=== PATIENT | female | born 1990 | race African-American/Black ===

== ENCOUNTER 2017-11-09 22:20 | Inpatient (IN) | payer OTHER ==
[2017-11-09 22:48] LABS: Pregnancy Test - Urine (BHCG) POSITIVE (Negative); Pregu Control Background? CLEAR/WHITE (CLR/WHITE); Pregu Control Bar Appear? YES (CONTROL BAR)
[2017-11-09 22:50] LABS: Bilirubin Negative (Negative); Blood, Urine Negative (Negative); Clarity CLOUDY (Clear); Glucose, Urine (Dipstick) Negative (Negative); Leukocyte Large (Negative); Nitrite Positive (Negative); Protein, Urine (Dipstick) Trace mg/dL (Neg-Trace); Specific Gravity, Urine 1.012 (1.002-1.036)
[2017-11-09 22:51] LABS: Specific Gravity 1.012 (1.002-1.036)
[2017-11-09 22:52] LABS: Bacteria/HPF 4+ HPF (None Seen); Hyaline Casts/LPF 0-3 HYALINE CAST LPF (0-3 Hyaline); Pathc Cast-AUWi Flag 0.13 (0-2.49); Yeast-AUWi Flag 21.9 (0-25.0)
[2017-11-09] MEDS ORDERED: Acetaminophen 500 MG TAB ONE (23:23)
[2017-11-09 23:31] LABS: #Basophils 0.1 thou/uL (0.0-0.2); #Eosinphils 0.1 thou/uL (0.0-0.7); #Lymphocytes 1.3 thou/uL (1.20-3.40); #Monocytes 0.6 thou/uL (0.11-0.59); #Neutrophils 8.1 thou/uL (1.40-6.50); %Basophils 0.9 % (0.0-1.0); %Lymphocytes 12.4 % (21.0-51.0); %Monocytes 5.7 % (0.0-10.0); %Neutrophils 79.9 % (42.0-75.0); Hemoglobin 10.7 g/dL (12.0-16.0); Mean Corpuscular HGB CONC 34.7 g/dL (32.0-36.0); Mean Corpuscular Hemoglobin 30.3 pg (27.0-31.0); Mean Corpuscular Volume 87.2 fl (81.0-99.0); Mean Platelet Volume 9.7 fL (7.4-10.4); Platelet Count 156 thou/uL (130-400); RBC Distribution Width 11.8 % (11.5-14.5); Red Blood Cell (RBC) Count 3.52 mill/uL (4.20-5.40); White Blood Cell (WBC) Count 10.1 thou/uL (4.8-10.8)
[2017-11-09 23:56] LABS: ALT (SGPT) 7 U/L (8-55); AST (SGOT) 10 U/L (5-34); Albumin 3.7 g/dL (3.5-5.0); Alkaline Phosphatase 84 U/L (40-150); Anion Gap 14 mmol/L (10-20); BUN (Urea Nitrogen) 4 mg/dL (7.0-18.7); Bilirubin, Total 0.4 mg/dL (0.2-1.2); Calc. Creatinine Clearance 0 mL/min (70-130); Calcium 9.1 mg/dL (7.8-10.44); Carbon Dioxide 20 mmol/L (22-29); Chloride 102 mmol/L (98-107); Estimated GFR-MDRD Greater than 90; Globulin 3.3 g/dL (2.4-3.5); Glucose 102 mg/dL (70-105); Potassium 3.3 mmol/L (3.5-5.1); Sodium 133 mmol/L (136-145)
[2017-11-10] MEDS ORDERED: Acetaminophen 500 MG TAB PO PRN (00:37)
[2017-11-10 00:42] VITALS: BMI 28.0
[2017-11-10] MEDS ORDERED: cefTRIAXone\\ROCEPHIN 1 GM in Sodium Chloride 0.9% 100 ML IVPB SCH (00:45)
[2017-11-10] MEDS ORDERED: Potassium Chloride 20 MEQ TAB PO SCH ×2 (00:45→08:00)
[2017-11-10] MEDS: Sodium Chloride 0.9% 1,000 ML IV SCH ×2 (01:28→05:41)
[2017-11-10 02:16] LABS: Amphetamine Not Detected (NotDetected); Barbiturates Screen Not Detected (NotDetected); Benzodiazepine Screen Not Detected (NotDetected); Cocaine Metabolite Screen Not Detected (NotDetected); Medtox Control Line Valid? VALID (VALID); Medtox Reader # READER 1; Methadone Not Detected (NotDetected); Methamphetamine Not Detected (NotDetected); Opiate Screen Not Detected (NotDetected); Oxycodone Screen Not Detected (NotDetected); Phencyclidine (PCP) Not Detected (NotDetected); THC/Cannabinoid Screen Not Detected (NotDetected); Tricyclic Screen Not Detected (NotDetected)
[2017-11-10 05:50] LABS: #Eosinphils 0.1 thou/uL (0.0-0.7); #Lymphocytes 1.8 thou/uL (1.20-3.40); #Monocytes 0.4 thou/uL (0.11-0.59); #Neutrophils 4.9 thou/uL (1.40-6.50); %Basophils 0.4 % (0.0-1.0); %Eosinophils 1.9 % (0.0-10.0); %Lymphocytes 24.9 % (21.0-51.0); %Monocytes 6.1 % (0.0-10.0); %Neutrophils 66.8 % (42.0-75.0); Hemoglobin 8.8 g/dL (12.0-16.0); Mean Corpuscular HGB CONC 33.9 g/dL (32.0-36.0); Mean Corpuscular Hemoglobin 29.4 pg (27.0-31.0); Mean Corpuscular Volume 86.9 fl (81.0-99.0); Mean Platelet Volume 9.6 fL (7.4-10.4); Platelet Count 132 thou/uL (130-400); RBC Distribution Width 11.7 % (11.5-14.5); White Blood Cell (WBC) Count 7.3 thou/uL (4.8-10.8)
[2017-11-10 06:00] LABS: Anion Gap 8 mmol/L (10-20); BUN (Urea Nitrogen) Less than 4 mg/dL (7.0-18.7); Calc. Creatinine Clearance 167 mL/min (70-130); Carbon Dioxide 22 mmol/L (22-29); Chloride 108 mmol/L (98-107); Estimated GFR-MDRD Greater than 90; Glucose 91 mg/dL (70-105); Potassium 3.4 mmol/L (3.5-5.1); Sodium 135 mmol/L (136-145)
--- NOTE | 2017-11-10 07:29 | HP-2 ---
DATE OF ADMISSION: 11/10/2017 CODE STATUS: FULL. PRIMARY CARE PHYSICIAN: Dr. Jason Warren ATTENDING: Dr. Antonia Bailey RESIDENT: Dr. Trice Sanchez HISTORIAN: Patient. CHIEF COMPLAINT: Right flank pain. HISTORY OF PRESENT ILLNESS: This is a 27-year-old female G4, P2-1-0-3 at 17 and 3 weeks by 16 and 4-week ultrasound at [facility] presents with right-sided flank pain and foul smelling urine. She states that she has had these symptoms for 2 weeks. She states that she has some urinary hesitancy and increased frequency. She said she had a history of nausea, vomiting early in the , but has no nausea or vomiting associated with these symptoms. She also reports some subjective fevers and chills at home over the past 2 weeks. She denies dysuria. In the ER, she received 1 gram Rocephin, 1 liter of normal saline and Tylenol. PAST MEDICAL HISTORY: 1. Pyelo. 2. Chronic hypertension. OB HISTORY: She has a history of a twin gestation delivered at 36 weeks via C- section and prior to that 2 vaginal deliveries, both males at term. She had a history of preeclampsia in her with her twins as well as in her second . She states she has chronic hypertension and is currently managing it with diet. PAST SURGICAL HISTORY: x1. ALLERGIES: No known drug allergies. MEDICATIONS: vitamins. FAMILY HISTORY: None. SOCIAL HISTORY: She does smoke 5 cigarettes a day. Denies alcohol use. Has a history of marijuana use. REVIEW OF SYSTEMS: GENERAL: Endorses fevers and chills. GI: Endorses a history of nausea and vomiting, not current. RESPIRATORY: Denies cough, congestion. CARDIOVASCULAR: Denies chest pain, palpitations. : LMP 07/14/2017. Endorses hesitancy and foul smelling urine and increased frequency. SKIN: Denies rashes or lesions. MUSCULOSKELETAL: Neck pain and tenderness. NEURO: Denies weakness, numbness. PSYCHIATRIC: Denies anxiety, depression. PHYSICAL EXAMINATION: VITAL SIGNS: Blood pressure 133/85, pulse 101, respiratory rate 16, T-max 99.5 , pulse ox 99% on room air. Current weight 78.9 kilograms. GENERAL: Alert and oriented x4. EYES: PERRLA, EOMI. ENT: Nasal mucosa and oropharynx within normal limits. NECK: Supple. CARDIOVASCULAR: Regular rate and rhythm. No murmur, rub, or gallop. RESPIRATORY: Normal effort, no retractions, clear to auscultation bilaterally. ABDOMEN: Soft, right lower quadrant and suprapubic tenderness to palpation. Positive CVA tenderness of the right gravid abdomen. MUSCULOSKELETAL: Structure within normal limits. NEUROLOGIC: No focal deficits. LABORATORY DATA: CBC 10.1, 10.7, 30.7, 156. CMP: 133, 3.3, 102, 24, [id number]. AST, ALT, alkaline phosphatase, 10, 7, 84. MCV 87. GFR greater than 90. UA; specific gravity 1.012, negative blood, trace protein, large leukocyte esterase, positive for nitrites, 40 ketones, 4-6 red blood cells, greater than 50 white blood cells, 4+ bacteria, 4-6 squamous epithelial cells, negative. Prior labs from clinic show negative gonorrhea, negative chlamydia. ASSESSMENT AND PLAN: This is a 27-year-old female G4, P2-1-0-3 at 17 and 3 x 16 and 4-week ultrasound, presents with right flank pain, admitted for pyelonephritis. 1. Pyelonephritis: The patient was given 1 gram of Rocephin in the ER. This was continued. She was placed on IV fluids at a rate of 150 mL per hour. We will recheck a CBC and BMP. We will provide Tylenol p.r.n. for pain and fever. 2. Chronic hypertension that is diet controlled. We will continue to monitor. Recommend a 24-hour protein in the outpatient setting once the patient is not sick. 3. Hypokalemia. We will replace patient's potassium. 4. Anemia of . We will provide p.o. iron since her hemoglobin is less than 11. 5. History of drug use. We will order a urine drug screen. 6. History of preeclampsia, would recommend 24-hour urine as stated above. 7. [place] intrauterine at 17 and 4 weeks by 16 and 4-week ultrasound. Recommend routine care. DISPOSITION/LENGTH OF HOSPITAL STAY: 2-3 days. Symptomatic medications will be provided. History and physical exam as well as management discussed with Dr. Bailey. KERRY
--- NOTE | 2017-11-10 08:31 | PDOC.FM ---
- Subjective Subjective: Pt doing a little better this morning. Denies any fever or chills. Reports having R. sided back pain. Says it is a little lower this morning. Denies any pain with urination. Reported foul smelling urine. Says pain is not being well controlled with tylenol at this time. Reports pain as achey - Objective MAR Reviewed: Yes Vital Signs & Weight: Vital Signs (12 hours) Temp Pulse Resp BP 11/10/17 04:00 98.9 F 79 16 116/64 11/10/17 01:00 99.6 F 79 16 Weight Weight 78.925 kg I&O: 11/09/17 11/10/17 11/11/17 06:59 06:59 06:59 Intake Total 1350 Output Total 1400 Balance -50 Result Diagrams: 11/10/17 05:09 11/10/17 05:09 Radiology Reviewed by me: No (No images to review) <Jason Warren - Last Filed: 11/10/17 09:11> - Objective Vital Signs & Weight: Vital Signs (12 hours) Temp Pulse Resp BP BP 11/10/17 12:00 98.4 F 89 20 121/60 11/10/17 08:58 98.1 F 86 18 11/10/17 08:00 98.1 F 86 18 123/80 11/10/17 04:00 98.9 F 79 16 116/64 Weight Weight 78.925 kg I&O: 11/09/17 11/10/17 11/11/17 06:59 06:59 06:59 Intake Total 1350 Output Total 1400 Balance -50 Result Diagrams: 11/10/17 05:09 11/10/17 05:09 <Jennifer Barriga - Last Filed: 11/10/17 15:44> Phys Exam - Physical Examination Constitutional: NAD HEENT: PERRLA, moist MMs Neck: no nodes, no JVD, full ROM Respiratory: no wheezing, no rales, no rhonchi, clear to auscultation bilateral Cardiovascular: RRR, no significant murmur Gastrointestinal: soft, non-tender, no distention, positive bowel sounds Musculoskeletal: no edema, pulses present Has pain on palpation of R lower side. CVA tenderness noted Neurological: non-focal, normal sensation, moves all 4 limbs Lymphatic: no nodes Psychiatric: normal affect, A&O x 3 Skin: no rash, normal turgor <Jason Warren - Last Filed: 11/10/17 09:11> Dx/Plan (1) Pyelonephritis affecting in second trimester Code(s): O23.02 - INFECTIONS OF KIDNEY IN , SECOND TRIMESTER; N12 - TUBULO-INTERSTITIAL NEPHRITIS, NOT SPCF ACUTE OR CHRONIC Status: Acute (2) Status: Acute QualifierTitle: Weeks of gestation: 16 weeks Qualified Code(s): Z3A.16 - 16 weeks gestation of - Plan Plan: 1)Pyelonephritis -UA nitrite +, 4+ bacteria, and Large LE. Pt reports having hx of foul smelling urine for last few weeks. -Outside U/A was negative. -Tx with rocephin at this time. -Tylenol not adequately controlling pain at this time. May consider adjusting pain medication. 2)Hypokalemia -K 3.4 this morning. will replace. Will continue to check daily BMP and tx as needed 3) of 2nd Trimester -27 yo @17.4 weeks and 16.4 weeks by outside U/s -Is taking -Will continue to monitor 4)Chronic Hypertension of -Has hx of severe preeclampsia in previous -will start on aspirin at this time. - Continue to manage and f/u with routine care. Will want to get Protein/Cr ratio outside. -Recommend 24 hour urine protein -Do not want to tx unless severely elevated 5)Anemia of -Hgb 8.8 this morning. Some may be dilutional due to fluids. -Being tx with iron BID. <Jason Warren - Last Filed: 11/10/17 09:11> (1) delivery due to maternal disorder Code(s): [id number] - Status: Acute Plan: Follow up with PCP to discuss MOD options. Follow up sono for location of placenta. (2) Hypokalemia Code(s): E87.6 - HYPOKALEMIA Status: Acute Plan: Trend. Add mag to AM labs. Replace if less than 2.0. (3) Anemia affecting in second trimester Code(s): O99.012 - ANEMIA COMPLICATING , SECOND TRIMESTER Status: Chronic Plan: Continue oral iron. If remains low, would consider iron infusion prior to d/c. (4) Chronic hypertension complicating or reason for care during Code(s): O10.919 - UNSP PRE-EXISTING HTN COMP , UNSP TRIMESTER Status : Chronic Qualifiers: Trimester: second trimester Qualified Code(s): O10.912 - Unspecified pre- existing hypertension complicating , second trimester Plan: Once infection treated with negative FARA, will need 24 hour urine protein collection as well as consideration for baseline uric acid. Start ASA. Plan for daily BP monitoring. Will need to plan for referral to [facility] for anatomy. Will need antepartum testing scheduled at later date. (5) History of herpes genitalis Code(s): Z86.19 - PERSONAL HISTORY OF OTHER INFECTIOUS AND PARASITIC DISEASES Status: Chronic (6) Thrombocytopenia affecting Code(s): O99.119 - OT DIS OF BLD/BLD-FORM ORG/IMMUN MECHNSM COMP PREG,UNSP TRI ; D69.6 - THROMBOCYTOPENIA, UNSPECIFIED Status: Acute Plan: Trend. Add peripheral smear to AM CBC. Rule out causes. Possible ITP vs gestational vs acute infectious cause. <Jennifer Barriga - Last Filed: 11/10/17 15:44> Attending Addendum - Attending Addendum I personally evaluated the patient and discussed the management with Dr. Warren and Dr. Diaz I agree with the History, Examination, Assessment and Plan documented above with any addition or exceptions noted below. 27 yo (previous di/di twin delivery) at 17.3 wks by 16.4 wk sono admitted for right-sided pyelonephritis. HD#1 MATTIE: 04/17/18 Afebrile. VSS. Doing well. Tolerating IV antibx without complications. Mild RCVA on exam. Lungs CTA bilaterally. No SOB. Pyelonephritis: Continue IV antibx for at least 48 hours. Awaiting culture results to de-escalate. Trend CBC. Will need FARA after 2 wks. Will need ppx. Past hx of pyelo with last . Would consider referral to urology. cHTN: Monitor. ASA started. Will need baseline 24 hour urine protein once FARA negative. sIUP: Routine PNC. Anemia: Check etiology. Past hx of anemia with last . No known hemoglobinopathy Thrombocytopenia: Smear in AM. Consider ITP. Will need Hep c ruled out. hx of LTCS: Follow up with PCP to discuss MOD. Continue inpt care. Lele <Jennifer Barriga - Last Filed: 11/10/17 15:44>
[2017-11-10] MEDS: Prenatal Vitamin 1 TAB PO SCH (09:22)
[2017-11-10] MEDS: Ferrous Sulfate 325 MG TAB PO SCH ×2 (09:23→18:22)
[2017-11-10 13:56] LABS: Hemoglobin A1c 4.6 % (4.0-6.0)
[2017-11-10] MEDS: Acetaminophen 325 MG TAB PO SCH ×2 (15:26→20:31)
[2017-11-10] MEDS: cefTRIAXone\\ROCEPHIN 1 GM, Syringe 0.4 ML in Sterile Water 9.6 ML SLOW IVP SCH (20:31)
[2017-11-11] MEDS: Acetaminophen 325 MG TAB PO SCH ×4 (01:54→20:12)
[2017-11-11 05:53] LABS: Band 3 % (5-11); Eosinophils 4 % (0-10); Lymphocytes 24 % (21-51); MDiff Complete? YES; Mean Corpuscular HGB CONC 33.5 g/dL (32.0-36.0); Mean Corpuscular Volume 86.7 fl (81.0-99.0); Mean Platelet Volume 9.8 fL (7.4-10.4); Monocytes 4 % (0-10); Neutrophil 65 % (42-75); PLT Morphology Comment Appears Adequate; Platelet Count 141 thou/uL (130-400); RBC Distribution Width 11.8 % (11.5-14.5); Red Blood Cell (RBC) Count 3.11 mill/uL (4.20-5.40); White Blood Cell (WBC) Count 7.3 thou/uL (4.8-10.8)
[2017-11-11 06:10] LABS: Anion Gap 13 mmol/L (10-20); BUN (Urea Nitrogen) Less than 4 mg/dL (7.0-18.7); Calc. Creatinine Clearance 154 mL/min (70-130); Calcium 8.7 mg/dL (7.8-10.44); Carbon Dioxide 18 mmol/L (22-29); Chloride 106 mmol/L (98-107); Estimated GFR-MDRD Greater than 90; Glucose 78 mg/dL (70-105); Potassium 4.5 mmol/L (3.5-5.1); Sodium 132 mmol/L (136-145)
--- NOTE | 2017-11-11 08:18 | PDOC.FM ---
- Subjective Subjective: Pt reports doing much better this morning. Pt says that pain has gotten much better. Is being well controlled with current regimen. Pt states she feels ready to go home. Denies any pain with urination. Denies any fever or chills. Denies any acute events overnight. - Objective MAR Reviewed: Yes Vital Signs & Weight: Vital Signs (12 hours) Temp Pulse Resp BP 11/11/17 07:48 98.8 F 79 18 130/65 11/11/17 04:00 98.9 F 86 16 123/60 11/11/17 01:59 100.1 F H 94 16 138/71 Weight Weight 78.925 kg I&O: 11/10/17 11/11/17 11/12/17 06:59 06:59 06:59 Intake Total 1350 2430 Output Total 1400 2200 Balance -50 230 Result Diagrams: 11/11/17 05:03 11/11/17 05:03 <Jason Warren - Last Filed: 11/11/17 08:30> - Objective Vital Signs & Weight: Vital Signs (12 hours) Temp Pulse Resp BP 11/11/17 12:00 98.0 F 84 20 120/61 11/11/17 08:00 98.8 F 79 18 11/11/17 07:48 98.8 F 79 18 130/65 Weight Weight 78.925 kg I&O: 11/10/17 11/11/17 11/12/17 06:59 06:59 06:59 Intake Total 1350 2430 Output Total 1400 2200 Balance -50 230 Result Diagrams: 11/11/17 05:03 11/11/17 05:03 <Jennifer Barriga - Last Filed: 11/11/17 16:25> Phys Exam - Physical Examination Constitutional: NAD HEENT: PERRLA, moist MMs, oral pharynx no lesions Neck: no nodes, supple, full ROM Respiratory: no wheezing, no rales, no rhonchi, clear to auscultation bilateral Cardiovascular: RRR, no significant murmur, no rub Gastrointestinal: soft, non-tender, no distention, positive bowel sounds No CVA tenderness noted today Musculoskeletal: no edema, pulses present Neurological: non-focal Lymphatic: no nodes Psychiatric: normal affect, A&O x 3 Skin: no rash, normal turgor, cap refill <2 seconds <Jason Warren - Last Filed: 11/11/17 08:30> Dx/Plan (1) Pyelonephritis affecting in second trimester Code(s): O23.02 - INFECTIONS OF KIDNEY IN , SECOND TRIMESTER; N12 - TUBULO-INTERSTITIAL NEPHRITIS, NOT SPCF ACUTE OR CHRONIC Status: Acute (2) Status: Acute QualifierTitle: Weeks of gestation: 16 weeks Qualified Code(s): Z3A.16 - 16 weeks gestation of (3) Thrombocytopenia affecting Code(s): O99.119 - OTH DIS OF BLD/BLD-FORM ORG/IMMUN MECHNSM COMP PREG,UNSP TRI ; D69.6 - THROMBOCYTOPENIA, UNSPECIFIED Status: Acute (4) Hypokalemia Code(s): E87.6 - HYPOKALEMIA Status: Resolved (5) Anemia affecting in second trimester Code(s): O99.012 - ANEMIA COMPLICATING , SECOND TRIMESTER Status: Chronic (6) Chronic hypertension complicating or reason for care during Code(s): O10.919 - UNSP PRE-EXISTING HTN COMP , UNSP TRIMESTER Status : Chronic QualifierTitle: Trimester: second trimester Qualified Code(s): O10.912 - Unspecified pre-existing hypertension complicating , second trimester (7) History of herpes genitalis Code(s): Z86.19 - PERSONAL HISTORY OF OTHER INFECTIOUS AND PARASITIC DISEASES Status: Chronic (8) delivery due to maternal disorder Code(s): [id number] - Status: Acute - Plan Plan: 1)Pyelonephritis -UA nitrite +, 4+ bacteria, and Large LE. Pt reports having hx of foul smelling urine for last few weeks. Pt sx's much improved from yesterday. Feels ready to go home. Will await urine cx for abx tx outpatient. Will continue to monitor. -Outside U/A was negative. -Tx with rocephin at this time. -Urine Cx pending- will await results for further tx course -Continue ana Tylenol. Controlling pain. 2)Hypokalemia-resolved -K 4.5 this morning. Resolved. Will continue to check daily BMP and tx as needed 3) of 2nd Trimester -27 yo @17.5 weeks and 16.5 weeks by outside U/s -Is taking -Will continue to monitor 4)Chronic Hypertension of -Has hx of severe preeclampsia in previous -will start on aspirin at this time. -BP stable and in normal range on last few checks. - Continue to manage and f/u with routine care. Will want to get Protein/Cr ratio outside. -Recommend 24 hour urine protein. Consider baseline uric acid. Will need to plan for referral to [facility] for anatomy. Will need antepartum testing scheduled at later date. -Do not want to tx unless severely elevated 5)Anemia of -Hgb 9.0 this morning. Some may be dilutional due to fluids. -Iron low at 42. Ferritin normal. -Being tx with iron BID. -Continue to follow outpatient 6) Thrombocytopenia -Plt count low. Improving this morning. Could be due to infection. ITP vs gestational. -Peripheral smear pending to rule out any pathology 7) hx of herpes -No sign of acute infection at this time. Will need to possibly tx with acyclovir closer to delivery <Jason Warren - Last Filed: 11/11/17 08:30> (1) delivery due to maternal disorder Code(s): [id number] - Status: Acute (2) Anemia affecting in second trimester Code(s): O99.012 - ANEMIA COMPLICATING , SECOND TRIMESTER Status: Chronic (3) Chronic hypertension complicating or reason for care during Code(s): O10.919 - UNSP PRE-EXISTING HTN COMP , UNSP TRIMESTER Status : Chronic Qualifiers: Trimester: second trimester Qualified Code(s): O10.912 - Unspecified pre- existing hypertension complicating , second trimester (4) History of herpes genitalis Code(s): Z86.19 - PERSONAL HISTORY OF OTHER INFECTIOUS AND PARASITIC DISEASES Status: Chronic (5) Thrombocytopenia affecting Code(s): O99.119 - [facility] DIS OF BLD/BLD-FORM ORG/IMMUN MECHNSM COMP PREG,UNSP TRI ; D69.6 - THROMBOCYTOPENIA, UNSPECIFIED Status: Acute <Jennifer Barriga - Last Filed: 11/11/17 16:25> Attending Addendum - Attending Addendum I personally evaluated the patient and discussed the management with Dr. Warren and Dr. Diaz I agree with the History, Examination, Assessment and Plan documented above with any addition or exceptions noted below. 27 yo (previous di/di twin delivery) at 17.4 wks by 16.4 wk sono admitted for right-sided pyelonephritis. HD#2 MATTIE: 04/17/18 Borderline temp overnight. VSS. Doing well. Tolerating IV antibx without complications. Pain controlled today. Pyelonephritis: Continue IV antibx for at least 48 hours. Noted to have E. coli. Awaiting sensitivities. Will need FARA after 2 wks. Will need ppx throughout and 6 wks pp. Past hx of pyelo with last . Would consider referral to urology as well. cHTN: BP WNL. Monitor. Continue ASA. Will need baseline 24 hour urine protein once FARA negative. Will need TSH, not done with IOB labs. sIUP: Routine PNC. Needs IOB labs. Anemia: Etiology pending. Iron low but ferritin WNL. B12 WNL. Folate pending. Smear with normocytic normochromic anemia. Past hx of anemia with last . No known hemoglobinopathy from history. Thrombocytopenia: Smear WNL. Possible gestational vs ITP. Will need to monitor closely. hx of LTCS: Follow up with PCP to discuss MOD. hx of HSV: Antiviral prn and ppx at 36 wks hx of medically indicated PTD at 35 wks in twin gestation Continue inpt care. Lele <Jennifer Barriga - Last Filed: 11/11/17 16:25>
[2017-11-11] MEDS: Ferrous Sulfate 325 MG TAB PO SCH ×2 (08:56→18:16)
[2017-11-11] MEDS: Prenatal Vitamin 1 TAB PO SCH (08:56)
[2017-11-11] MEDS: cefTRIAXone\\ROCEPHIN 1 GM, Syringe 0.4 ML in Sterile Water 9.6 ML SLOW IVP SCH (21:44)
[2017-11-12] MEDS: Acetaminophen 325 MG TAB PO SCH ×2 (03:33→09:38)
--- NOTE | 2017-11-12 06:35 | PDOC.FM ---
- Subjective Subjective: Pt doing well this morning. Denies any pain. Reports ready to go home. Denies any acute events overnight. Denies any pain with urination. Denies any fever or chills. Denies any SOB. Denies n/v/d/c. No other concerns or complaints at this time - Objective MAR Reviewed: Yes Vital Signs & Weight: Vital Signs (12 hours) Temp Pulse Resp BP BP 11/12/17 03:44 98.0 F 79 14 133/64 11/12/17 00:25 98.8 F 74 16 131/76 11/11/17 19:20 98.5 F 82 16 120/72 Weight Weight 78.925 kg I&O: 11/10/17 11/11/17 11/12/17 06:59 06:59 06:59 Intake Total 1350 2430 950 Output Total 1400 2200 Balance -50 230 950 Result Diagrams: 11/11/17 05:03 11/11/17 05:03 <Jason Warren - Last Filed: 11/12/17 08:22> - Objective Vital Signs & Weight: Vital Signs (12 hours) Temp Pulse Resp BP 11/12/17 08:48 98.5 F 75 20 160/81 H 11/12/17 08:00 98.0 F 79 14 Weight Weight 78.925 kg I&O: 11/11/17 11/12/17 11/13/17 06:59 06:59 06:59 Intake Total 2430 950 Output Total 2200 Balance 230 950 Result Diagrams: 11/11/17 05:03 11/11/17 05:03 <Jennifer Barriga - Last Filed: 11/12/17 18:17> Phys Exam - Physical Examination Constitutional: NAD HEENT: PERRLA, moist MMs, oral pharynx no lesions Neck: no nodes, supple, full ROM Respiratory: no wheezing, no rales, no rhonchi, clear to auscultation bilateral Cardiovascular: RRR, no significant murmur, no rub Gastrointestinal: soft, non-tender, no distention, positive bowel sounds No CVA tenderness Musculoskeletal: no edema, pulses present Neurological: non-focal, normal sensation, moves all 4 limbs Lymphatic: no nodes Psychiatric: normal affect Skin: no rash, normal turgor, cap refill <2 seconds <Jason Warren - Last Filed: 11/12/17 08:22> Dx/Plan (1) Pyelonephritis affecting in second trimester Code(s): O23.02 - INFECTIONS OF KIDNEY IN , SECOND TRIMESTER; N12 - TUBULO-INTERSTITIAL NEPHRITIS, NOT SPCF ACUTE OR CHRONIC Status: Acute (2) Status: Acute QualifierTitle: Weeks of gestation: 16 weeks Qualified Code(s): Z3A.16 - 16 weeks gestation of (3) Thrombocytopenia affecting Code(s): O99.119 - OTH DIS OF BLD/BLD-FORM ORG/IMMUN MECHNSM COMP PREG,UNSP TRI ; D69.6 - THROMBOCYTOPENIA, UNSPECIFIED Status: Acute (4) Hypokalemia Code(s): E87.6 - HYPOKALEMIA Status: Resolved (5) Anemia affecting in second trimester Code(s): O99.012 - ANEMIA COMPLICATING , SECOND TRIMESTER Status: Chronic (6) Chronic hypertension complicating or reason for care during Code(s): O10.919 - UNSP PRE-EXISTING HTN COMP , UNSP TRIMESTER Status : Chronic QualifierTitle: Trimester: second trimester Qualified Code(s): O10.912 - Unspecified pre-existing hypertension complicating , second trimester (7) History of herpes genitalis Code(s): Z86.19 - PERSONAL HISTORY OF OTHER INFECTIOUS AND PARASITIC DISEASES Status: Chronic (8) delivery due to maternal disorder Code(s): [id number] - Status: Acute - Plan Plan: 1)Pyelonephritis -UA nitrite +, 4+ bacteria, and Large LE. Pt reports having hx of foul smelling urine for last few weeks. Pt sx's much improved. Feels ready to go home. Urine cx- E.coli +. sensitive to abx for outpatient tx -Outside U/A was negative. -Tx with rocephin at this time. Will switch to oral abx at this time. Will need to continue tx through remainder of and post . Pt has hx of previous pyelo infection in . May need urology referral outpatient -Continue ana Tylenol. Controlling pain. -Pt stable for discharge 2)Hypokalemia-resolved -K 4.5 yesterday. Resolved. 3) of 2nd Trimester -27 yo @17.5 weeks and 16.5 weeks by outside U/s -Is taking -Needs initial OB labs drawn. Will get those outpatient -Will continue to monitor 4)Chronic Hypertension of -Has hx of severe preeclampsia in previous -will start on aspirin at this time. -TSH normal -BP mildly elevated. - Continue to manage and f/u with routine care. Will want to get Protein/Cr ratio outside. -Recommend 24 hour urine protein. Consider baseline uric acid. Will need to plan for referral to [facility] for anatomy. Will need antepartum testing scheduled at later date. -Do not want to tx unless severely elevated 5)Anemia of -Hgb 9.0 this morning. Some may be dilutional due to fluids. -Smear shows Normocytic Normochromic Anemia. -B12 normal. RBC folate pending. -Iron low at 42. Ferritin normal. -Being tx with iron BID. -Continue to follow outpatient 6) Thrombocytopenia -Plt count low. Improving this morning. Could be due to infection. ITP vs gestational. -Peripheral smear shows appropriate morphology 7) hx of herpes -No sign of acute infection at this time. Will need to acyclovir PRN as needed and ppx @36 weeks until delivery. <Jason Warren - Last Filed: 11/12/17 08:22> (1) delivery due to maternal disorder Code(s): [id number] - Status: Acute (2) Anemia affecting in second trimester Code(s): O99.012 - ANEMIA COMPLICATING , SECOND TRIMESTER Status: Chronic (3) Chronic hypertension complicating or reason for care during Code(s): O10.919 - UNSP PRE-EXISTING HTN COMP , UNSP TRIMESTER Status : Chronic Qualifiers: Trimester: second trimester Qualified Code(s): O10.912 - Unspecified pre- existing hypertension complicating , second trimester (4) History of herpes genitalis Code(s): Z86.19 - PERSONAL HISTORY OF OTHER INFECTIOUS AND PARASITIC DISEASES Status: Chronic (5) Thrombocytopenia affecting Code(s): O99.119 - OTH DIS OF BLD/BLD-FORM ORG/IMMUN MECHNSM COMP PREG,UNSP TRI ; D69.6 - THROMBOCYTOPENIA, UNSPECIFIED Status: Acute <Jennifer Barriga - Last Filed: 11/12/17 18:17> Attending Addendum - Attending Addendum I personally evaluated the patient and discussed the management with Dr. Warren and Dr. Diaz I agree with the History, Examination, Assessment and Plan documented above with any addition or exceptions noted below. 27 yo (previous di/di twin delivery) at 17.5 wks by 16.4 wk sono admitted for right-sided pyelonephritis. HD#3 MATTIE: 04/17/18 Afebrile. VSS. Pain resolved. No complaints. Requesting d/c. FHT by doppler = 135. Pyelonephritis: Melgoza sensitive E. coli. Switch to PO antibiotics. Treat for total of 14 days. Will need FARA after 2 wks. Will need ppx throughout and 6 wks pp. Past hx of pyelo with last . Would consider referral to urology as well. cHTN: BP WNL except one outlier overnight. Monitor. Continue ASA. Will need baseline 24 hour urine protein once FARA negative. TSH WNL. No EKG needed. cHTN has not been present for > 5 years. sIUP: Routine PNC. Needs IOB labs. Anemia: Etiology pending. Iron low but ferritin WNL. B12 WNL. Folate pending. Smear with normocytic normochromic anemia. Past hx of anemia with last . No known hemoglobinopathy from history. Electrophoresis pending. No evidence of hemolytic process. Thrombocytopenia: Smear WNL. Possible gestational vs ITP. Will need to monitor closely. hx of LTCS: Follow up with PCP to discuss MOD. hx of HSV: Antiviral prn and ppx at 36 wks hx of medically indicated PTD at 35 wks in twin gestation: No need for 17-OHP Precautions discussed. Follow up with PCP in 1 wk. Ok to d/c to home. Lele <Jennifer Barriga - Last Filed: 11/12/17 18:17>
[2017-11-12 08:48] VITALS: BP 160/81; TEMP 98.5
[2017-11-12] MEDS: Prenatal Vitamin 1 TAB PO SCH (09:38)
[2017-11-12] MEDS: Ferrous Sulfate 325 MG TAB PO SCH (09:38)
[2017-11-13 16:15] LABS: Hemoglobin A 97.5 % (96.4-98.8); Hemoglobin A2 2.5 % (1.8-3.2); Hemoglobin F 0 % (0.0-2.0); Interpretation Note: (.)
[2017-11-14 17:14] LABS: Folate,Hemolysate 301.3 ng/mL (Not Estab.); Hematocrit 25.8 % (34.0-46.6); RBC Folate Test Component 1168 ng/mL (>498)
== END 2017-11-12 11:30 | disposition home or self-care (01) | DRG 781 ==
LOC: ERS 22:20 → 3SW 11-10 00:17
PROVIDERS: ADMIT Family Medicine; ATTEND Family Medicine
DX: O23.02 Infections of kidney in pregnancy, second trimester (principal); D69.6 Thrombocytopenia, unspecified; E87.1 Hypo-osmolality and hyponatremia; O10.912 Unspecified pre-existing hypertension complicating pregnancy, second trimester; O99.112 Other diseases of the blood and blood-forming organs and certain disorders involving the immune mechanism complicating pregnancy, second trimester; N10 Acute pyelonephritis; D64.9 Anemia, unspecified; E87.6 Hypokalemia; Z3A.17 17 weeks gestation of pregnancy; O99.012 Anemia complicating pregnancy, second trimester; O99.332 Smoking (tobacco) complicating pregnancy, second trimester; F17.210 Nicotine dependence, cigarettes, uncomplicated; Z86.19 Personal history of other infectious and parasitic diseases
CPT/HCPCS: 36415; 80048; 80053; 80306; 81003; 81015; 81025; 82607; 82728; 82747; 83021; 83036; 83540; 83735; 84443; 85007; 85025; 85027; 85060; 87040; 87077; 87086; 87186; 96361; 96374; A4216; J0696

== ENCOUNTER 2018-03-11 13:42 | Day surgery (SDC) | payer OTHER ==
[2018-03-11] MEDS ORDERED: Acetaminophen 500 MG TAB PO PRN (14:12)
[2018-03-11] MEDS ORDERED: Iron Sucrose Complex 500 MG in Sodium Chloride 0.9% 250 ML 250 ML IVPB SCH (14:15)
[2018-03-11 14:20] VITALS: BP 147/90; TEMP 99.5; BMI 27.6
[2018-03-11] MEDS ORDERED: Sodium Chloride 0.9% 1,000 ML IV SCH (15:30)
--- NOTE | 2018-03-11 16:01 | PDOC.LDHP ---
Labor and Delivery H&P Chief complaint: other (scheduled iron infusion) HPI: 27 yo @ 34.5 by 16.4 wk US presents for iron infusion. No current complaints including VB, LOF, ctxs. +FM. Most recent hgb on 02/26/18 was 8.7 Current gestational age (weeks): 34 (5) Due date: 04/17/18 Dating criteria: second trimester ultrasound Grav: 4 Para: 4 (h/o twin delivery) Current complications: hypertension (chronic), other (h/o preeclampsia h/o pyelonephritis h/o genital herpes) Abnormal US findings: Yes (No gross anomalies, EFW 48%, but UA S/D ratio elevated at 3.69) Current medications: iron, other (ASA labetalol) Previous surgical history: low tranverse CS Allergies/Adverse Reactions: Allergies Allergy/AdvReac Type Severity Reaction Status Date / Time No Known Allergies Allergy Verified 03/11/18 14:22 Social history: none - Physical Exam Vital signs reviewed and normal: yes (with the exception of mildly elevated BPs (140s systolic)) General: NAD Heart: RRR Lungs: CTAB Abdomen: NTTP Extremeties: no edema FHT: category 1 (B/l 140's), variability present [place] contractions every: none - OB Labs Blood type: O RH: positive Antibody Screen: negative HIV: negative RPR: negative 1 hour GCT: negative (121) GBS: unknown Urine drug screen: not done Rubella: immune - Assessment 27 yo @ 34.5 WGA here for iron infusion. high risk complicated by multiple issues including chronic HTN requiring antihypertensive therapy, h/ o pyelonephritis this on prophylaxis, h/o preeclampsia in prior , h/o twin delivery requiring C/S, short interpregnancy interval, h/o genital herpes, elevated S/D ratio with concern for future development of placental insufficiency, and anemia of . - Plan Plan: admit to L&D -: 1) Severe anemia of : Proceed with iron dextran infusion protocol. Monitor closely. Ok for discharge home if no issues following infusion.
== END 2018-03-11 19:20 | disposition home or self-care (01) ==
LOC: L&D/OP 13:42
PROVIDERS: ATTEND Family Medicine
DX: O99.012 Anemia complicating pregnancy, second trimester (principal); O10.912 Unspecified pre-existing hypertension complicating pregnancy, second trimester; Z3A.16 16 weeks gestation of pregnancy
CPT/HCPCS: 96361; 96365; 96366; J1756; J7050